=== PATIENT | male | born 1965 | race Caucasian/White ===

== ENCOUNTER 2017-06-06 08:24 | Emergency (ER) | payer SELFPAY ==
--- NOTE | 2017-06-06 08:35 | EDPHY ---
H & P Source: Patient, Police Exam Limitations: No limitations Time Seen by Provider: 06/06/17 08:35 HPI/ROS: HPI: This is a 51-year-old male who presents with Chief Complaint: Alcohol intoxication M1 hold Location: psych Quality: Alcohol intoxication and M1 hold Duration: Today Signs and Symptoms: Timing: Acute on chronic Severity: Moderate Context: Patient has a history of hypertension, alcohol abuse, polysubstance abuse presents via EMS and police who were called out to [facility] where he had been staying for the last 4 days. His ex- was speaking to him this morning and he was telling her that he wanted to kill himself. She called the front attendant and advised them knee does to call 911 as he was suicidal. Patient admits that he drank a 5th of vodka last night. Five cut is his drink toys and he drinks normally every day. He admits to using methamphetamine and cocaine approximately 1 week ago. He is originally from [place] and moved to the area to get away mall the drugs and"bullshit." He is tearful at times when he discusses the of his daughter. He reports that the world is just"shit" and is "going to hell and hand basket." He reports there is no reason to continue living he wants to kill himself by drinking excessively, going to sleep and never waking up. At 1 point he is requesting to be admitted to the "[facility]." Denies any prior inpatient psychiatric hospitalizations or suicide attempts. Medical problems include hypertension for which he takes metoprolol and lisinopril last dose yesterday per patient. He also has pill bottles with prescriptions for paroxetine and trazodone the patient reports that he has not taken any of these for several months. Modifying Factors: None Comment: ROS: see HPI Constitutional: No fever, no chills, no weight loss Eyes: No blurred vision Respiratory: No shortness of breath, no cough Cardiovascular: No chest pain Gastrointestinal: No nausea, no vomiting, no diarrhea Genitourinary: No dysuria Extremities: No myalgias Neurologic: No weakness, no numbness Skin: No rashes Hematologic: No bruising, no bleeding MEDICAL/SURGICAL/SOCIAL HISTORY: Medical history: Hypertension, depression, alcohol abuse, polysubstance abuse Surgical history: Denies Social history: Originally from [place]. Unemployed. . CONSTITUTIONAL: Clearly intoxicated and smells of alcohol, overweight adult white male, awake and alert, no obvious distress HEENT: Atraumatic and normocephalic, PERRL, EOMI. Tympanic membranes clear. Oropharynx clear, no exudate and moist pink mucosa. Airway patent. No lymphadenopathy. No meningismus. Cardiovascular: Normal S1/S2, regular rate, regular rhythm, without murmur rub or gallop. PULMONARY/CHEST: Symmetrical and nontender. Clear to auscultation bilaterally. Good air movement. No accessory muscle usage. ABDOMEN: Soft, protuberant, nondistended, nontender, no rebound, no guarding, no peritoneal signs, no masses or organomegaly. No CVAT. EXTREMITIES: 2/2 pulses, strength 5/5, no deformities, no clubbing, no cyanosis or edema. NEUROLOGICAL: no focal neuro deficits. GCS 15. SKIN: Warm and dry, no erythema. no rash. Good capillary refill. PSYCH: Fair eye contact, no flight of ideas, organized thought process, fair insight and judgment, no auditory and visual command hallucinations, + suicidal ideation with a plan, no homicidal ideation, not paranoid (Wendy,Terra) Constitutional: Initial Vital Signs Temperature (C) 36.6 C 06/06/17 08:47 Heart Rate 83 06/06/17 08:47 Respiratory Rate 16 06/06/17 08:47 Blood Pressure 148/107 H 06/06/17 08:47 O2 Sat (%) 91 L 06/06/17 08:47 O2 Delivery Mode Room Air Allergies/Adverse Reactions: Penicillins Allergy (Verified 06/06/17 09:04) Home Medications: Medication Instructions Recorded Lisinopril 06/06/17 Metoprolol Tartrate 06/06/17 PARoxetine CR 06/06/17 traZODone 06/06/17 Medical Decision Making ED Course/Re-evaluation: 0830: Agree with [facility] police placing patient on M1 hold as patient is suicidal. He is clearly intoxicated and will re-evaluate patient once he is more sober. Labs and UDS ordered. Patient is currently calm and cooperative no interventions are required. 1000: Ethanol level to 299; will have to wait several hours until repeat ethanol level is lower. Labs reviewed and grossly unremarkable. UDS positive for marijuana. 1045: Notified by nursing that patient requesting tray. Also patient is getting slightly anxious and agitated. P.o. Ativan 2 mg and Librium 50 mg ordered. 1200: Notified by nursing that patient now complaining of indigestion. Given Pepcid and GI cocktail with symptomatic relief. Breathalyzer 0.150 1715: [facility] evaluating patient. 1800: End of Shift. Signed over to Dr. Quinn pending mental health evaluation and final disposition. (Ann Nguyen) I took over care of this patient at 6:00 p.m.. This patient is on an M1 hold for alcohol abuse, substance abuse and suicidal ideation. He has been seen and evaluated by Behavioral Health. We are currently awaiting their disposition. 7:00 p.m., behavioral Health has reassess this patient. They now feels the patient is appropriate for discharge to home. The patient will go back to his hotel room. He has a job. He is to be at that job tomorrow morning. He will follow-up through [facility] after work tomorrow. His family is in agreement with this plan. The patient feels comfortable with this plan. He is no longer suicidal. Return to emergency department precautions were discussed with him. He understands his follow-up. He was discharged in good condition. ( Maldonado Quinn) Differential Diagnosis: Differential diagnosis includes but is not limited to alcohol intoxication, functional in situational major depression, delusional disorder, psychosis. (Ann Nguyen) - Data Points Laboratory Results: Laboratory Results 06/06/17 08:45 06/06/17 08:45 06/06/17 06/06/17 06/06/17 09:35 08:45 08:45 WBC 5.10 10^3/uL 10^3/uL (3.80-9.50) RBC 5.07 10^6/uL 10^6/uL (4.40-6.38) Hgb 16.2 g/dL g/dL (13.7-17.5) Hct 45.6 % % (40.0-51.0) MCV 89.9 fL fL (81.5-99.8) MCH 32.0 pg pg (27.9-34.1) MCHC 35.5 g/dL g/dL (32.4-36.7) RDW 13.0 % % (11.5-15.2) Plt Count 202 10^3/uL 10^3/uL (150-400) MPV 9.3 fL fL (8.7-11.7) Neut % (Auto) 62.0 % % (39.3-74.2) Lymph % (Auto) 28.0 % % (15.0-45.0) [place] % (Auto) 8.4 % % (4.5-13.0) Eos % (Auto) 0.6 % % (0.6-7.6) Baso % (Auto) 0.6 % % (0.3-1.7) Nucleat RBC Rel Count 0.0 % % (0.0-0.2) Absolute Neuts (auto) 3.16 10^3/uL 10^3/uL (1.70-6.50) Absolute Lymphs (auto) 1.43 10^3/uL 10^3/uL (1.00-3.00) Absolute Monos (auto) 0.43 10^3/uL 10^3/uL (0.30-0.80) Absolute Eos (auto) 0.03 10^3/uL 10^3/uL (0.03-0.40) Absolute Basos (auto) 0.03 10^3/uL 10^3/uL (0.02-0.10) Absolute Nucleated RBC 0.00 10^3/uL 10^3/uL (0-0.01) Immature Gran % 0.4 % % (0.0-1.1) Immature Gran # 0.02 10^3/uL 10^3/uL (0.00-0.10) Sodium 144 mEq/L mEq/L (135-145) Potassium 4.2 mEq/L mEq/L (3.5-5.2) Chloride 103 mEq/L mEq/L (97-110) Carbon Dioxide 23 mEq/l mEq/l (22-31) Anion Gap 18 mEq/L H mEq/L (8-16) BUN 13 mg/dL mg/dL (7-23) Creatinine 0.9 mg/dL mg/dL (0.7-1.3) Estimated GFR > 60 Glucose 84 mg/dL mg/dL (70-100) Calcium 8.6 mg/dL mg/dL (8.5-10.4) Urine Opiates Screen NEGATIVE (NEGATIVE) Urine Barbiturates NEGATIVE (NEGATIVE) Ur Phencyclidine Scrn NEGATIVE (NEGATIVE) Ur Amphetamine Screen NEGATIVE (NEGATIVE) U Benzodiazepines Scrn NEGATIVE (NEGATIVE) Urine Cocaine Screen NEGATIVE (NEGATIVE) U Marijuana (THC) Screen NON-NEGATIVE H (NEGATIVE) Ethyl Alcohol 299 mg/dL H mg/dL (0-10) Medications Given: Discontinued Medications Al Hydroxide/Mg Hydroxide (Maalox Susp) 30 ml PO ONCE ONE Stop: 06/06/17 11:52 Last Admin: 06/06/17 11:55 Dose: 30 ml Chlordiazepoxide HCl (Librium) 50 mg PO EDNOW ONE Stop: 06/06/17 12:16 Last Admin: 06/06/17 12:25 Dose: 50 mg Famotidine (Pepcid) 20 mg PO EDNOW ONE Stop: 06/06/17 11:52 Last Admin: 06/06/17 11:56 Dose: 20 mg Hyoscyamine Sulfate (Levsin, Hyomax-Sl) 0.25 mg PO ONCE ONE Stop: 06/06/17 11:52 Last Admin: 06/06/17 11:56 Dose: 0.25 mg Lidocaine (Lidocaine 2% Viscous) 15 ml PO ONCE ONE Stop: 06/06/17 11:52 Last Admin: 06/06/17 11:55 Dose: 15 ml Lorazepam (Ativan) 1 mg PO EDNOW ONE Stop: 06/06/17 10:42 Last Admin: 06/06/17 10:54 Dose: 1 mg Lorazepam (Ativan) 2 mg PO EDNOW ONE Stop: 06/06/17 12:16 Last Admin: 06/06/17 12:25 Dose: 2 mg Departure - Departure Disposition: Home, Routine, Self-Care Clinical Impression: Situational depression Alcohol intoxication Qualifiers: Complication of substance-induced condition: uncomplicated Qualified Code(s): F10.920 - Alcohol use, unspecified with intoxication, uncomplicated Condition: Good Instructions: Depression (ED) Additional Instructions: Read and follow provided instructions. Follow-up with [facility], within the next 1-2 days as discussed by her behavioral health provider here in the emergency department. Do not drink alcohol. Return to the emergency department for worsening symptoms, suicidal thoughts or other serious concerns. Referrals: [facility],. [Clinic] - As per Instructions
[2017-06-06 08:51] LABS: PLATELET COUNT 202 10^3/uL (150-400)
[2017-06-06 08:53] VITALS: RESP 16
[2017-06-06] MEDS ORDERED: LORazepam 1 MG TAB PO ONE ×2 (10:41→12:15)
[2017-06-06] MEDS ORDERED: LIDOCAINE 2% VISCOUS 15 ML UDCUP PO ONE (11:51)
[2017-06-06] MEDS ORDERED: MAG HYDROX/AL HYDROX/SIMETH 30 ML UDCUP PO ONE (11:51)
[2017-06-06] MEDS ORDERED: HYOSCYAMINE SULFATE 0.125 MG TAB PO ONE (11:51)
[2017-06-06] MEDS ORDERED: FAMOTIDINE 20 MG TAB PO ONE (11:51)
[2017-06-06] MEDS ORDERED: chlordiazePOXIDE 25 MG CAP PO ONE (12:15)
[2017-06-06 16:41] VITALS: TEMP 96.8
[2017-06-06 19:26] VITALS: BP 165/100; PULSE 100; O2SAT 95
== END 2017-06-06 19:29 | disposition home or self-care (01) ==
DX: F43.21 Adjustment disorder with depressed mood (principal); F10.920 Alcohol use, unspecified with intoxication, uncomplicated; I10 Essential (primary) hypertension
CPT/HCPCS: 80305; G0480